=== PATIENT | male | born 1980 | race Hispanic/Latino ===

== ENCOUNTER 2017-09-03 13:42 | Emergency (ER) | payer OTHER ==
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
[2017-09-03] MEDS ORDERED: BOOSTRIX IM ONE (20:50)
[2017-09-03] MEDS ORDERED: TRIPLE ANTIBIOTIC TP ONE (20:51)
[2017-09-03] MEDS ORDERED: XYLOCAINE 2% INFILTRATI ONE (20:51)
[2017-09-03] MEDS ORDERED: MOTRIN PO ONE (20:51)
[2017-09-03] MEDS ORDERED: KEFLEX PO ONE (20:51)
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
[2017-09-03] MEDS ORDERED: ANCEF IM ONE (20:56)
[2017-09-03 23:26] VITALS: BP 127/81
== END 2017-09-03 22:40 | disposition home or self-care (01) ==
LOC: ED 13:42
DX: S21.111A Laceration without foreign body of right front wall of thorax without penetration into thoracic cavity, initial encounter (principal); F17.200 Nicotine dependence, unspecified, uncomplicated; F12.10 Cannabis abuse, uncomplicated; X99.1XXA Assault by knife, initial encounter; Y93.89 Activity, other specified; Y99.8 Other external cause status; Y92.89 Other specified places as the place of occurrence of the external cause
CPT/HCPCS: 12004; 71020; 90471; 90715; 96372; 99283; J0690; A6250